=== PATIENT | female | born 1995 | race Caucasian/White ===

== ENCOUNTER 2016-10-05 14:57 | Emergency (ER) | payer BC, OTHER ==
--- NOTE | ~2016-10-05 | US134 ---
[facility]. [facility] A Service of [facility] & [facility] RADIOLOGY TEXT RESULTS PATIENT: NASIM FROST LOCATION: SED : [birth year] UNIT #: [id number] AGE: [address]: Aravind Briseno DO SEX: F ORDER DR: [id number] [address] [address] [id number] E MR#: [id number] Acc #: [id number] NAME: NASIM FROST : 1995 SEX: F STUDY DATE/TIME: 10/05/2016 14:43 UNIT: SED ROOM: STUDY DESCRIPTION: US Transvaginal Attending Physician: Aravind Briseno Ordering Physician: Aravind Briseno Primary Care Physician: Brady Palomo M.D. MEDICAL IMAGING REPORT This report is preliminary unless electronic signature is present. EXAM Pelvic sonogram HISTORY Right-sided pelvic pain x1 day, history of ovarian cysts. FINDINGS Real-time examination demonstrates a normal-appearing nongravid uterus, slightly anteverted. Uterus measures 7.4 x 3.8 x 4.8 cm. Endometrium appears normal, with a double-thickness measurement of 13 mm. Both ovaries are visualized and appear normal. The right ovary measures 2.3 x 1.4 x 2.3 cm and the left ovary measures 2.2 x 2.2 x 1.7 cm. There are a few small follicular cysts. No free fluid or adnexal masses. Doppler flow noted bilaterally. IMPRESSION Normal pelvic sonogram. Dictated by... Farshad Bell M.D. THIS IS AN ELECTRONICALLY VERIFIED REPORT Farshad Bell M.D. at 10/06/2016 1:05 PM JEN/augie TD: 10/05/2016 17:00 JOB #: [id number] MEDICAL IMAGING REPORT Page 1 of 1
[2016-10-05 14:18] LABS: URINE SOURCE CLEAN CATCH
[2016-10-05 14:21] LABS: URINE APPEARANCE CLEAR; URINE BILIRUBIN NEG (NEG); URINE BLOOD 1+ (NEG); URINE COLOR YELLOW; URINE GLUCOSE NEG (NORM); URINE KETONE NEG (NEG); URINE LEUKOCYTE ESTERASE NEG (NEG); URINE NITRATE NEG (NEG); URINE PH 5.5 (5-8); URINE PROTEIN TRACE (NEG); URINE SPECIFIC GRAVITY >=1.030 (1.003-1.035); URINE UROBILINOGEN 0.2 MG/DL (NORM)
[2016-10-05 14:22] LABS: BASOPHIL% 0.9 % (0-2.5); EOSINOPHIL# 0.1 X10e3 (0-0.7); EOSINOPHIL% 2.4 % (0.0-7.0); HEMATOCRIT 40.5 % (35.0-45.0); HEMOGLOBIN 13.8 gm/dL (12.0-16.0); LYMPHOCYTE# 1.5 X10e3 (1.0-3.5); LYMPHOCYTE% 29.8 % (17.0-45.0); MEAN CELL VOLUME 85.5 FL (83-96); MEAN CORPUSCULAR HEMOGLOBIN 29.2 PG (28-34); MEAN CORPUSCULAR HGB CONC 34.2 g/dL (30-36); MEAN PLATELET VOLUME 8.1 FL (6.5-11.5); MONOCYTE# 0.4 X10e3 (0-1.0); MONOCYTE% 8.5 % (3.0-12.0); NEUTROPHIL% 58.4 % (40-75); PLATELET COUNT 263 X10e3 (140-420); RED BLOOD COUNT 4.74 X10e (3.90-5.30); RED CELL DISTRIBUTION WIDTH 13.4 % (11.0-15.5); WHITE BLOOD COUNT 5.1 X10e3 (4.0-10.5)
[2016-10-05 14:23] LABS: MICRO INDICATED? YES
[2016-10-05 14:28] LABS: CULTURE INDICATED? YES; URINE BACTERIA 3+ (NEG); URINE SQUAMOUS EPITHELIAL CELL MODERATE /[HPF]
[2016-10-05 14:29] LABS: URINE MUCUS PRESENT
[2016-10-05 14:30] LABS: DIFF IND NO
[2016-10-05 14:44] LABS: ALBUMIN SERUM 4.2 g/dL (3.5-5.0); BILIRUBIN, DIRECT 0.1 mg/dL (0.0-0.2); BILIRUBIN,INDIRECT 0.8 mg/dL (0.0-0.9); BILIRUBIN,TOTAL 0.9 mg/dL (0.2-2.0); BUN/CREATININE RATIO 12.85; CALCIUM SERUM 9.2 mg/dL (8.4-10.2); CREATININE SERUM 0.7 mg/dL (0.6-1.4); POTASSIUM 3.5 mmol/L (3.5-5.1); PROTEIN TOTAL SERUM 7.5 g/dL (6.0-8.3)
[~2016-10-05 14:57] MED LIST: ALBUTEROL17 GM; BIRTH CONTROL PILL PO; CLARITIN10 MG; CONCERTA; FLEXERIL10 M1 PO; FLEXERIL10 MG PO; IBUPROFEN400 MG PO; IBUPROFEN800 MG PO; NO MEDICATIONS; PRILOSEC20 M1 PO; SEROQUEL; SEROQUEL PO; VOLTAREN75 MG PO; ZOFRAN PO; ZYRTEC10 M2 PO; ZZZQUIL25 MG
== END 2016-10-05 16:04 | disposition home or self-care (01) ==
LOC: SED 14:57
PROVIDERS: Emergency Medicine
DX: N39.0 Urinary tract infection, site not specified (principal); F90.9 Attention-deficit hyperactivity disorder, unspecified type; F17.200 Nicotine dependence, unspecified, uncomplicated; Z79.899 Other long term (current) drug therapy
CPT/HCPCS: 36415; 76830; 80048; 80076; 81003; 83690; 84703; 85025; 87086; 96374; 96375; 99284; J1885; J2405

== ENCOUNTER 2017-01-24 12:18 | Emergency (ER) | payer BC, OTHER ==
[~2017-01-24] VITALS: Ht 167.6 cm; Wt 48.1 kg
--- NOTE | ~2017-01-24 | CT71 ---
[facility] A Service of [facility] RADIOLOGY TEXT RESULTS PATIENT: NASIM FROST LOCATION: OTIS : [birth year] UNIT #: [id number] AGE: [address]: Nitish Westbrook DO SEX: F ORDER DR: [id number] [facility] [address] [place], [place] [address] [id number] E MR#: [id number] Acc #: [id number] NAME: NASIM FROST : 1995 SEX: F STUDY DATE/TIME: 01/24/2017 15:05 UNIT: [facility] ROOM: STUDY DESCRIPTION: CT Head Wo Contrast Attending Physician: Nitish Westbrook D.O. Ordering Physician: Nitish Westbrook D.O. Primary Care Physician: Brady Palomo M.D. MEDICAL IMAGING REPORT This report is preliminary unless electronic signature is present EXAM CT head INDICATION Nausea. Dizziness for 3 days. Headache for [address] of the head without contrast. This CT exam was performed with one or more of the following radiation dose reduction techniques: Automatic exposure control, adjustment of mA and/or kV according to patient size, and iterative reconstruction. COMPARISON CT head 11/25/2011. FINDINGS Axial noncontrast images were obtained from the skull base to the vertex. Ventricular size and configuration are normal. There is no evidence of acute infarct or hemorrhage. There are no extra-axial fluid collections. No mass lesion or mass effect is seen. There are no skull fractures. IMPRESSION Normal noncontrast head CT. Dictated by... Jin Geller M.D. THIS IS AN ELECTRONICALLY VERIFIED REPORT Jin Geller M.D. at 01/25/2017 5:16 PM Suman/dru TD: 01/25/2017 16:25 [facility] A Service [facility] RADIOLOGY TEXT RESULTS PATIENT: NASIM FROST LOCATION: [facility] : [birth year] UNIT #: [id number] AGE: [address]: Nitish Westbrook DO SEX: F ORDER DR: JOB #: [id number] MEDICAL IMAGING REPORT Page 1 of 1 COPY
--- NOTE | ~2017-01-24 | CT2 ---
[facility] A Service of [facility] RADIOLOGY TEXT RESULTS PATIENT: NASIM FROST LOCATION: [facility] : [birth year] UNIT #: [id number] AGE: [address]: Nitish Westbrook DO SEX: F ORDER DR: [id number] [place] [id number] [facility]. [place], [place] [address] [id number] E MR#: [id number] Acc #: [id number] NAME: NASIM FROST : 1995 SEX: F STUDY DATE/TIME: 01/24/2017 15:07 UNIT: [facility] ROOM: STUDY DESCRIPTION: CT Abd and Pelv W Cont Attending Physician: Nitish Westbrook D.O. Ordering Physician: Nitish Westbrook D.O. Primary Care Physician: Brady Palomo M.D. MEDICAL IMAGING REPORT This report is preliminary unless electronic signature is present EXAM CT abdomen and pelvis INDICATIONS Nausea. Left lower quadrant abdominal pain. TECHNIQUE CT of the abdomen and pelvis utilizing 100 mL Isovue-370 IV contrast. Coronal and sagittal reconstructions were obtained. This CT exam was performed with one or more of the following radiation dose reduction techniques: Automatic exposure control, adjustment of mA and/or kV according to patient size, and iterative reconstruction. COMPARISON CT abdomen and pelvis dated 02/26/2016. FINDINGS ABDOMEN: The solid abdominal organs enhance normally. Gallbladder is not distended. The bowel is nondilated. The appendix is normal. The abdominal aorta is normal in caliber. PELVIS: No pelvic mass. The uterus and ovaries are normal in appearance. Bladder is unremarkable. No enlarged pelvic or inguinal lymph nodes. No acute osseous abnormalities. IMPRESSION No acute findings in the abdomen or pelvis. Dictated by... [facility] A Service of [facility] RADIOLOGY TEXT RESULTS PATIENT: NASIM FROST LOCATION: [facility] : [birth year] UNIT #: [id number] AGE: [address]: Hottman,Nitish M DO SEX: F ORDER DR: Jin Geller M.D. THIS IS AN ELECTRONICALLY VERIFIED REPORT Jin Geller M.D. at 01/25/2017 5:17 PM RPC/augie TD: 01/25/2017 16:32 JOB #: [id number] MEDICAL IMAGING REPORT Page 1 of 1 COPY
--- NOTE | ~2017-01-24 | EKG ---
PATIENT: NASIM FROST UNIT #: [id number] Ventricular Rate: 48 BPM Atrial Rate: 48 BPM P-R Interval: 134 ms QRS Duration: 88 ms Q-T Interval: 434 ms QTC Calculation(Bezet): 387 ms P [place]: 51 degrees Calculated R [place]: 71 degrees Calculated T [place]: 42 degrees Diagnosis Line: Marked sinus bradycardia Diagnosis Line: Borderline ECG Diagnosis Line: No previous ECGs available Diagnosis Line: Confirmed by KATHERINE NEVAREZ MD ([id number]) on 01/25/2017 Diagnosis Line: 3:07:42 PM INTERPRETING MD: GERI ENCARNACION
[2017-01-24 13:20] LABS: URINE SOURCE CLEAN CATCH
[2017-01-24 13:27] LABS: URINE APPEARANCE CLEAR; URINE BILIRUBIN NEG (NEG); URINE BLOOD NEG (NEG); URINE COLOR YELLOW; URINE GLUCOSE NEG (NEG); URINE KETONE NEG (NEG); URINE LEUKOCYTE ESTERASE NEG (NEG); URINE NITRATE NEG (NEG); URINE PH 7.5 (5-8); URINE PROTEIN NEG (NEG); URINE SPECIFIC GRAVITY 1.009 (1.003-1.035); URINE UROBILINOGEN 0.2 MG/DL (NEG)
[2017-01-24 13:29] LABS: BASOPHIL% 0.9 % (0-2.5); EOSINOPHIL# 0.1 X10e3 (0-0.7); EOSINOPHIL% 2.7 % (0.0-7.0); HEMATOCRIT 43.4 % (35.0-45.0); HEMOGLOBIN 14.6 gm/dL (12.0-16.0); LYMPHOCYTE# 1.9 X10e3 (1.0-3.5); LYMPHOCYTE% 37.8 % (17.0-45.0); MEAN CELL VOLUME 87.5 FL (83-96); MEAN CORPUSCULAR HEMOGLOBIN 29.5 PG (28-34); MEAN CORPUSCULAR HGB CONC 33.7 g/dL (30-36); MEAN PLATELET VOLUME 8.1 FL (6.5-11.5); MONOCYTE# 0.5 X10e3 (0-1.0); MONOCYTE% 10.2 % (3.0-12.0); NEUTROPHIL# 2.4 X10e3 (1.5-7.1); NEUTROPHIL% 48.4 % (40-75); PLATELET COUNT 296 X10e3 (140-420); RED BLOOD COUNT 4.96 X10e (3.90-5.30); RED CELL DISTRIBUTION WIDTH 12.9 % (11.0-15.5)
[2017-01-24 13:29] LABS: CULTURE INDICATED? NO
[2017-01-24 13:33] LABS: DIFF IND NO
[2017-01-24 14:05] LABS: ALBUMIN SERUM 5.1 g/dL (3.5-5.0); ALKALINE PHOSPHATASE 62 U/L (32-92); ALT (SGPT) 13 U/L (10-40); AST (SGOT) 19 U/L (10-42); BILIRUBIN, DIRECT 0.2 mg/dL (0.0-0.2); BILIRUBIN,TOTAL 1.2 mg/dL (0.2-2.0); BLOOD UREA NITROGEN <5 mg/dL (9-23); BUN/CREATININE RATIO 8.33; CALCIUM SERUM 9.4 mg/dL (8.4-10.2); CARBON DIOXIDE 26 mmol/L (22-31); CHLORIDE 103 mmol/L (100-111); CREATININE SERUM 0.6 mg/dL (0.6-1.4); GLOM FILT RATE Estimated 129.4 mL/min (>60); GLUCOSE FASTING 102 mg/dL (70-110); LIPASE 17 U/L (22-51); POTASSIUM 3.5 mmol/L (3.5-5.1); PROTEIN TOTAL SERUM 8.3 g/dL (6.0-8.3); SODIUM 139 mmol/L (135-145)
[2017-01-28 01:46] LABS: CHLAMYDIA TRACH Not Detected (Not Detected); N GONOR Not Detected (Not Detected)
== END 2017-01-24 17:05 | disposition home or self-care (01) ==
LOC: CED 12:18
PROVIDERS: Emergency Medicine
DX: R10.9 Unspecified abdominal pain (principal); R42 Dizziness and giddiness; Z98.890 Other specified postprocedural states; F17.200 Nicotine dependence, unspecified, uncomplicated; F90.9 Attention-deficit hyperactivity disorder, unspecified type; R51 Headache
CPT/HCPCS: 36415; 70450; 74177; 80048; 80076; 81003; 83690; 84484; 84703; 85025; 87491; 87591; 87808; 87905; 93005; 96361; 96372; 96374; 96375; 99284; J0500; J1885; J2405; Q9967